=== PATIENT | male | born 1995 | race Caucasian/White ===

== ENCOUNTER 2016-11-17 17:25 | Emergency (ER) | payer OTHER ==
[~2016-11-17] VITALS: Ht 190.5 cm; Wt 141.3 kg
[2016-11-17 17:27] VITALS: BP 174/111; TEMP 36.7; Ht 190.5 cm; Wt 141.3 kg
--- NOTE | 2016-11-17 18:03 | DIAGNOSTIC IMAGING REPORT ---
RIGHT TIBIA/FIBULAR 2 VIEWS HISTORY: R calf pain Right COMPARISON: None. FINDINGS: There is no fracture or dislocation. There are suggestion of soft tissue swelling within the proximal to mid calf. No radiopaque foreign bodies. IMPRESSION: No fractures. Soft tissue swelling within the proximal to mid calf which could be due to muscular injury Electronically signed by: Brice Coulter M.D. 11/17/2016 6:01 PM Dictated Date/Time: 11/17/2016 6:00 PM
--- NOTE | 2016-11-17 18:25 | DIAGNOSTIC IMAGING REPORT ---
RIGHT LOWER EXTREMITY VENOUS DOPPLER HISTORY: Right calf pain and swelling Right COMPARISON STUDY: None. FINDINGS: There is normal compressibility, flow, and augmentation within the right lower extremity deep venous system. IMPRESSION: No DVT within the right lower extremity Electronically signed by: Brice Coulter M.D. 11/17/2016 6:23 PM Dictated Date/Time: 11/17/2016 6:22 PM
[2016-11-17 19:47] VITALS: PULSE 97; O2SAT 97
--- NOTE | 2016-11-18 00:58 | EMERGENCY ROOM VISIT NOTE ---
ED Visit Note First contact with patient: 17:32 Chief Complaint: Right calf pain. History of Present Illness: Mr. Lopez is a 21-year-old white male who ambulates into the ED accompanied by female friend complaining of right posterior calf pain. Patient reports approximately 2 weeks ago he was playing football. He is attempting to tackle another player and felt that someone kicked him in the posterior calf. Since that time he has been having moderate pain and has noted some swelling. Today he was seen at a local urgent care and referred to the ED for an ultrasound to evaluate for deep pain thrombus. Currently patient describes his discomfort as. He rates his discomfort 7/10. The pain is nonradiating. The pain worsens with palpation, ambulation and dorsiflexion. He has not identified any alleviating factors related to the pain. He reports she's been taken ibuprofen without relief of his discomfort. He denies any associated symptoms including fevers, chills, sweats, cough, shortness of breath, wheezing, chest pain, palpitations, orthopnea, dependent edema, previous clots, claudication, recent surgery/inactivity/extended travel, hip pain, knee pain, ankle pain, leg/foot weakness/numbness/tingling. Additionally he denies any previous significant injuries or surgeries to the knee or calf. Review of Systems: As noted above in history of present illness. 8 body systems were reviewed and found to be negative as noted above. Past Medical History: Hypertension, asthma. Current Medications: Patient denies. Allergies to Medications: Patient denies. Social History: Patient is currently employed; he feels safe in his home environment; he denies tobacco use and admits to alcohol use. Physical Examination: Vital Signs: Date Time Temp Pulse Resp B/P Pulse Ox O2 Delivery O2 Flow Rate FiO2 11/17/16 19:47 97 18 97 Room Air 11/17/16 17:27 36.7 96 18 174/111 97 Room Air GENERAL: 21-year-old male in mild to moderate distress due to pain, nontoxic- appearing, afebrile and hemodynamically stable. NEUROLOGICAL: Awake, alert and oriented to person, place and time. Answering questions appropriately and following commands. Good hand eye coordination. No focal motor or sensory deficits. SKIN: Warm, dry and pink. Right Lower Leg: The anterior aspect of the mid leg patient has a couple contusions but no open wounds. HEENT: Atraumatic and normocephalic. THORAX: Lungs sounds are clear to auscultation and equal bilaterally with symmetrical chest wall. No crepitus, tenderness, subcutaneous air or deformities noted. HEART: Regular rate and rhythm. No gallops, rubs or murmurs are appreciated. RIGHT LOWER EXTREMITY: No shortening or rotation. No gross bony deformities. No tenderness in the hip, thigh, knee, ankle or foot. Moderate tenderness over the mid posterior lower leg in the area of the Achilles tendon/gastrocnemius. There appears to be bulging of the gastrocnemius consistent with possible tendon rupture. There are no palpable cords or soft tissue injuries. Full range of motion in flexion and extension of the knee. Decreased plantar flexion strength and full dorsiflexion strength but with pain. Positive Galeano's test. Distal pulses and sensation intact to light touch. Capillary refill is brisk. He was able to weight all toes. ED Course: Patient is assessed as noted above. Right Lower Leg X-Rays: Were read by myself and the radiologist showing no acute fractures or dislocations. Right Lower Leg Ultrasound: Was reviewed by myself and read by the radiologist showing no DVT Patient was offered pain medications and refused. Patient's lower leg was immobilized with a posterior ankle splint and plantar flexion and he was placed on nonweightbearing crutches. Patient was educated about tonight's findings and instructed on his treatment plan; he verbalizes understanding and agreement with this plan. Clinical Impression: Ruptured of the right gastrocnemius tendon. Decision-Making: Initially my differential diagnosis I considered fibula fracture, tibial fracture, compartment syndrome, gastrocnemius tendon rupture, DVT, Latham's cyst rupture and other causes. Disposition: Patient discharged home in stable condition accompanied by his fiance; prior to departure he was reassessed and subjectively reported he was feeling the same. Plan: Comfort measures were discussed with the patient including rest, alternating ibuprofen and acetaminophen, splint and crutch use. Patient was encouraged to follow-up with [facility] for definitive care and treatment per Patient was encouraged return the ED for worsening/uncontrolled pain, uncontrolled swelling, leg weakness/numbness/tingling or any new/concerning symptoms.
== END 2016-11-17 19:48 | disposition home or self-care (01) ==
LOC: C.EDB 17:27 → C.EDD 19:48
DX: S86.811A Strain of other muscle(s) and tendon(s) at lower leg level, right leg, initial encounter (principal); W50.0XXA Accidental hit or strike by another person, initial encounter; Y93.61 Activity, american tackle football; Y92.321 Football field as the place of occurrence of the external cause; I10 Essential (primary) hypertension; J45.909 Unspecified asthma, uncomplicated

== ENCOUNTER 2017-08-03 10:37 | Emergency (ER) | payer OTHER ==
[~2017-08-03] VITALS: Ht 190.5 cm; Wt 110.0 kg
[2017-08-03 10:54] VITALS: Ht 190.5 cm; Wt 110.0 kg
[2017-08-03 11:11] VITALS: O2SAT 98
[2017-08-03 11:35] LABS: BASO % 0.5 %; BASO ABS # 0.04 K/uL (0-0.2); COMPLETE YES; EOS % 1.1 %; HEMATOCRIT 49.8 % (42-52); IG% 0.6 %; LYMPH % 18.4 %; LYMPH ABS # 1.53 K/uL (1.2-3.4); MEAN CELL VOLUME 86.6 fL (80-100); MEAN CORPUSCULAR HEMOGLOBIN 30.8 pg (25-34); MEAN CORPUSCULAR HGB CONC 35.5 g/dl (32-36); MEAN PLATELET VOLUME 9.8 fL (7.4-10.4); MONO % 10.8 %; NEUT % 68.6 %; PLATELET COUNT 249 K/uL (130-400); RED BLOOD COUNT 5.75 M/uL (4.7-6.1)
[2017-08-03 11:51] LABS: PROTHROMBIN TIME (PATIENT) 10.6 SECONDS (9.0-12.0)
[2017-08-03 11:53] LABS: ALT/SGPT 30 U/L (12-78); AST/SGOT 18 U/L (15-37); BLOOD UREA NITROGEN 13 mg/dl (7-18); CALCIUM 9.4 mg/dl (8.5-10.1); CARBON DIOXIDE 28 mmol/L (21-32); CHLORIDE 102 mmol/L (98-107); GLUCOSE 91 mg/dl (70-99); POTASSIUM 3.9 mmol/L (3.5-5.1); SODIUM 135 mmol/L (136-145)
[2017-08-03 11:59] LABS: ALKALINE PHOSPHATASE 90 U/L (45-117)
[2017-08-03 12:15] VITALS: TEMP 36.9
--- NOTE | 2017-08-03 12:20 | DIAGNOSTIC IMAGING REPORT ---
CHEST 2 VIEWS ROUTINE HISTORY: Left-sided chest pain. Short of breath. COMPARISON: Chest 03/28/2011. FINDINGS: Small linear densities within the lingula consistent with subsegmental atelectasis or scarring. The lungs are otherwise clear. No pleural effusions. No pneumothorax. The heart is normal in size. IMPRESSION: No acute process. Electronically signed by: Brice Coulter M.D. 08/03/2017 12:19 PM Dictated Date/Time: 08/03/2017 12:15 PM
[2017-08-03] MEDS ORDERED: OPTIRAY 320 IV PRN (13:00)
--- NOTE | 2017-08-03 13:36 | DIAGNOSTIC IMAGING REPORT ---
CT ANGIOGRAM OF THE CHEST CLINICAL HISTORY: Left-sided chest pain. COMPARISON STUDY: Chest x-ray dated 08/03/2017. TECHNIQUE: Following the IV administration of 94 cc of Optiray 320, CT angiogram of the chest was performed from the upper abdomen to the thoracic inlet utilizing the pulmonary embolus protocol. Images are reviewed in the axial, sagittal, and coronal planes. 3-D MIPS images are created and assessed. IV contrast was administered without complication. A dose lowering technique was utilized adhering to the principles of ALARA. CT DOSE: 695.61 mGy.cm FINDINGS: Thyroid: Imaged portions of the thyroid gland are normal in size and attenuation. Thoracic aorta: The thoracic aorta is normal in caliber and demonstrates standard 3-vessel arch anatomy. No dissection is seen. Pulmonary vasculature: The pulmonary trunk is normal in caliber. There are no filling defects identified in main, lobar, or segmental pulmonary branches. There is low-attenuation seen involving a subsegmental branch of the left lower lobe pulmonary artery a region of subpleural consolidation. Heart: The heart is normal in size and configuration, and without pericardial effusion. Lungs and pleural spaces: There is a trace left pleural effusion. Subpleural consolidation is seen at the lateral left lung base. The lungs are otherwise clear. The trachea and central airways are patent. Mediastinum: There is no mediastinal lymphadenopathy. Adri: Clear. Axillae: There is no axillary lymphadenopathy. Upper abdomen: There is a tiny hiatal hernia. Fatty infiltration is noted adjacent to the falciform ligament. Partially visualized upper abdominal viscera is otherwise within normal limits. Skeletal structures: No lytic or blastic bony lesions are seen. IMPRESSION: 1. Motion degraded examination. 2. There is no evidence of pulmonary embolus in the main, lobar, or segmental pulmonary arteries. 3. There is a small focus of subpleural consolidation at the lateral left lung base. There is motion in this region, and low-attenuation is seen along the course of a subsegmental pulmonary artery leading to the consolidation. Although the consolidative change may represent pneumonia, subsegmental pulmonary embolus with infarct is not excluded. 4. There is a trace left pleural effusion. 5. The lungs are otherwise clear. Electronically signed by: Serge Dykes M.D. 08/03/2017 1:35 PM Dictated Date/Time: 08/03/2017 1:26 PM
[2017-08-03] MEDS ORDERED: LEVO-366 PO (14:42)
[2017-08-03] MEDS ORDERED: TRAM-10 PO (14:42)
[2017-08-03] MEDS ORDERED: OXYC1TAB3 PO (14:43)
[2017-08-03] MEDS ORDERED: TRAMADOL HCL 50 MG TAB PO STA (14:44)
[2017-08-03] MEDS ORDERED: KETOROLAC TROMETHAMINE 30 MG/ML VIAL IV STA (14:44)
[2017-08-03 15:32] VITALS: BP 142/92; PULSE 100; O2SAT 96
--- NOTE | 2017-08-03 16:03 | EMERGENCY ROOM VISIT NOTE ---
History First contact with patient: 10:59 Chief Complaint: RIB PAIN Stated Complaint: LEFT SIDE RIB PAIN/SHOULDER PAIN History of Present Illness The patient is a 22 year old male who presents to the Emergency Room with complaints of that sided rib and shoulder pain. The patient reports that his pain started yesterday, and significant he worsened overnight. He reports that the pain is worsened when lying on his back or side. He reports mildly worsening pain with deep breathing as well. The patient denies any recent upper respiratory infection, but does report that over a month ago he did experience a cough for approximate 3 days. He denied any significant persistence, sinus congestion, sore throat or fever. The patient does report occasional shortness of breath, and has worsening pain with deep breathing. The patient rates his discomfort an 8 out of 10. The patient denies any prior history of pneumothorax or cardiac disease. Review of Systems HEENT: Denies dizziness, visual problems, hearing loss, tinnitus. Denies difficulty swallowing or oral lesions. PULMONARY: Denies cough, sputum production or hemoptysis. Otherwise see history of present illness. CARDIOVASCULAR: Denies palpitations, dyspnea on exertion, orthopnea or peripheral edema. Otherwise see history of present illness. GASTROINTESTINAL: Denies diarrhea, constipation, nausea, vomiting, or abdominal pain. GENITOURINARY: Denies dysuria, frequency, urgency or nocturia. NEUROLOGIC: Denies history of epilepsy, CVA, TIA or chronic headaches. MUSCULOSKELETAL: Denies history of joint tenderness/swelling. SKIN: Denies rashes or lesions. PSYCHIATRIC: Denies history of depression or mental illness. ENDOCRINE: Denies history of diabetes or thyroid disorders. Past Medical/Surgical History Medical Problems: (1) Asthma, Unspecified (2) Esophageal Reflux (3) Hypertension Nos (4) Migraine Unspecified W/O Intract Mgrn W/O Status Migrainosus Surgical Problems: (1) No history of previous surgery Family History FH: diabetes mellitus FH: heart disease FH: kidney disease Social History Smoking Status: Never Smoker Alcohol Use: occasionally Marital Status: single Occupation Status: employed Current/Historical Medications Scheduled Levofloxacin (Levaquin), 500 MG PO DAILY Scheduled PRN Oxycodone Ir (Roxicodone Ir), 1-2 TAB PO Q4H PRN for Pain Tramadol (Ultram), 1-2 TAB PO Q4H PRN for Pain Physical Exam Vital Signs Date Time Temp Pulse Resp B/P (MAP) Pulse Ox O2 Delivery O2 Flow Rate FiO2 08/03/17 15:32 100 18 142/92 96 08/03/17 13:56 86 20 148/87 96 Room Air 08/03/17 12:16 81 08/03/17 12:15 36.9 83 19 144/87 96 Room Air 08/03/17 11:53 36.9 85 17 148/87 96 Room Air 08/03/17 11:20 36.9 93 17 151/90 98 Room Air 08/03/17 11:11 98 Room Air 08/03/17 10:54 36.9 93 14 129/75 98 Room Air Physical Exam CONSTITUTIONAL: Healthy and well nourished. Alert and oriented X 3 with positive affect. The patient does appear in mild discomfort. HEENT: Normocephalic, atraumatic. Pupils equal, round and reactive. No scleral icterus or conjunctival injection/pallor. NECK: Full active range of motion without discomfort. No JVD or carotid bruits. RESPIRATORY: Clear to auscultation bilaterally with no wheezing, crackles, rhonchi or stridor. Deep breathing doesn't worsen the patient's discomfort. CARDIOVASCULAR: Regular rate and rhythm with no murmurs, rubs or gallops. GASTROINTESTINAL: Bowel sounds present in all quadrants. Soft and nontender to palpation. MUSCULOSKELETAL: Examination does not show any significant worsening pain with range of motion of the left shoulder. He has no focal tenderness to palpation of the costochondral joints or chest wall. INTEGUMENTARY: No rash or other significant dermatologic conditions noted. HEMATOLOGIC: No ecchymosis or petechiae noted. NEUROLOGIC: Cranial nerves II-XII grossly intact. No focal neurologic deficits noted. Medical Decision & Procedures ER Provider Diagnostic Interpretation: My interpretation of an ECG shows a normal sinus rhythm without ST elevation or other conduction abnormalities. My interpretation of a two-view chest x-ray does not show any obvious consolidations, pneumothorax, cardiomegaly or other acute findings. Radiologist report is as follows: CHEST 2 VIEWS ROUTINE HISTORY: Left-sided chest pain. Short of breath. COMPARISON: Chest 03/28/2011. FINDINGS: Small linear densities within the lingula consistent with subsegmental atelectasis or scarring. The lungs are otherwise clear. No pleural effusions. No pneumothorax. The heart is normal in size. IMPRESSION: No acute process. CT angiography of the chest shows the following: CT ANGIOGRAM OF THE CHEST CLINICAL HISTORY: Left-sided chest pain. COMPARISON STUDY: Chest x-ray dated 08/03/2017. TECHNIQUE: Following the IV administration of 94 cc of Optiray 320, CT angiogram of the chest was performed from the upper abdomen to the thoracic inlet utilizing the pulmonary embolus protocol. Images are reviewed in the axial, sagittal, and coronal planes. 3-D MIPS images are created and assessed. IV contrast was administered without complication. A dose lowering technique was utilized adhering to the principles of ALARA. CT DOSE: 695.61 mGy.cm FINDINGS: Thyroid: Imaged portions of the thyroid gland are normal in size and attenuation. Thoracic aorta: The thoracic aorta is normal in caliber and demonstrates standard 3-vessel arch anatomy. No dissection is seen. Pulmonary vasculature: The pulmonary trunk is normal in caliber. There are no filling defects identified in main, lobar, or segmental pulmonary branches. There is low-attenuation seen involving a subsegmental branch of the left lower lobe pulmonary artery a region of subpleural consolidation. Heart: The heart is normal in size and configuration, and without pericardial effusion. Lungs and pleural spaces: There is a trace left pleural effusion. Subpleural consolidation is seen at the lateral left lung base. The lungs are otherwise clear. The trachea and central airways are patent. Mediastinum: There is no mediastinal lymphadenopathy. Adri: Clear. Axillae: There is no axillary lymphadenopathy. Upper abdomen: There is a tiny hiatal hernia. Fatty infiltration is noted adjacent to the falciform ligament. Partially visualized upper abdominal viscera is otherwise within normal limits. Skeletal structures: No lytic or blastic bony lesions are seen. IMPRESSION: 1. Motion degraded examination. 2. There is no evidence of pulmonary embolus in the main, lobar, or segmental pulmonary arteries. 3. There is a small focus of subpleural consolidation at the lateral left lung base. There is motion in this region, and low-attenuation is seen along the course of a subsegmental pulmonary artery leading to the consolidation. Although the consolidative change may represent pneumonia, subsegmental pulmonary embolus with infarct is not excluded. 4. There is a trace left pleural effusion. 5. The lungs are otherwise clear. Laboratory Results 08/03/17 11:15 Red Blood Count 5.75, Mean Corpuscular Volume 86.6, Mean Corpuscular Hemoglobin 30.8, Mean Corpuscular Hemoglobin Concent 35.5, Mean Platelet Volume 9.8, Neutrophils (%) (Auto) 68.6, Lymphocytes (%) (Auto) 18.4, Monocytes (%) (Auto) 10.8, Eosinophils (%) (Auto) 1.1, Basophils (%) (Auto) 0.5, Neutrophils # (Auto ) 5.69, Lymphocytes # (Auto) 1.53, Monocytes # (Auto) 0.90, Eosinophils # (Auto ) 0.09, Basophils # (Auto) 0.04 08/03/17 11:15 Test 08/03/17 11:15 White Blood Count 8.30 K/uL (4.8-10.8) Red Blood Count 5.75 M/uL (4.7-6.1) Hemoglobin 17.7 g/dL (14.0-18.0) Hematocrit 49.8 % (42-52) Mean Corpuscular Volume 86.6 fL (80-100) Mean Corpuscular Hemoglobin 30.8 pg (25-34) Mean Corpuscular Hemoglobin Concent 35.5 g/dl (32-36) Platelet Count 249 K/uL (130-400) Mean Platelet Volume 9.8 fL (7.4-10.4) Neutrophils (%) (Auto) 68.6 % Lymphocytes (%) (Auto) 18.4 % Monocytes (%) (Auto) 10.8 % Eosinophils (%) (Auto) 1.1 % Basophils (%) (Auto) 0.5 % Neutrophils # (Auto) 5.69 K/uL (1.4-6.5) Lymphocytes # (Auto) 1.53 K/uL (1.2-3.4) Monocytes # (Auto) 0.90 K/uL (0.11-0.59) Eosinophils # (Auto) 0.09 K/uL (0-0.5) Basophils # (Auto) 0.04 K/uL (0-0.2) RDW Standard Deviation 38.4 fL (36.4-46.3) RDW Coefficient of Variation 12.2 % (11.5-14.5) Immature Granulocyte % (Auto) 0.6 % Immature Granulocyte # (Auto) 0.05 K/uL (0.00-0.02) Prothrombin Time 10.6 SECONDS (9.0-12.0) Prothromb Time International Ratio 1.0 (0.9-1.1) Activated Partial Thromboplast Time 27.0 SECONDS (21.0-31.0) Partial Thromboplastin Ratio 1.0 D-Dimer 360 ug/L FEU (0-500) Anion Gap 5.0 mmol/L (3-11) Est Creatinine Clear Calc Drug Dose 127.1 ml/min Estimated GFR () 97.5 Estimated GFR (Non- 84.1 BUN/Creatinine Ratio 11.0 (10-20) Calcium Level 9.4 mg/dl (8.5-10.1) Total Bilirubin 1.2 mg/dl (0.2-1) Direct Bilirubin 0.2 mg/dl (0-0.2) Aspartate Amino Transf (AST/SGOT) 18 U/L (15-37) Alanine Aminotransferase (ALT/SGPT) 30 U/L (12-78) Alkaline Phosphatase 90 U/L (45-117) Total Creatine Kinase 146 U/L (39-308) Creatine Kinase MB 1.4 ng/ml (0.5-3.6) Creatine Kinase MB Ratio 1.0 (0-3.0) Troponin I < 0.015 ng/ml (0-0.045) Total Protein 8.4 gm/dl (6.4-8.2) Albumin 4.4 gm/dl (3.4-5.0) Lipase 106 U/L (73-393) The above labs were reviewed. Troponin and d-dimer are normal. Remaining labs were also reviewed and normal. CBC, partial renal profile and coagulation studies were also normal. Medications Administered Medications (Trade) Dose Ordered Sig/Sadaf Route Start Time Stop Time Status Last Admin Dose Admin Ketorolac Tromethamine (Toradol Inj) 30 mg NOW STAT IV 08/03/17 14:44 08/03/17 14:45 DC 08/03/17 15:03 30 MG Tramadol HCl (Ultram Tab) 50 mg NOW STAT PO 08/03/17 14:44 08/03/17 14:45 DC 08/03/17 15:02 50 MG ED Course Patient history and physical exam were performed. Nurse's notes were reviewed. Vital signs were reviewed and were normal. The patient initially refused any analgesics. IV access was established, and labs were drawn. ECG and portable chest x-ray were normal. Labs were also reviewed, showing a normal troponin and d-dimer. Remaining labs were also grossly normal. Given the patient's description of symptoms, the case was further discussed with Dr. Bass, ED attending physician who suggested performing a CT angiography of the chest to rule out PE, pneumonia or aortic dissection. The patient was in agreement. CT angiography shows a small focus of Cipro consolidation at the lateral left lung base. Although motion artifact is noted , the radiologist suggested consolidative changes that may represent pneumonia or a subsegmental pulmonary embolus with infarct. Kali Garza suggested discussing the case further with Dr. Lanier, cardiothoracic surgeon who also reviewed CT images and suggested antibiotic/NSAIDs treatment and follow-up with pulmonology. His consultation was appreciated. The patient was provided contact information for Dr. Diaz's office. The patient was provided a prescription for Levaquin 500 mg daily 7 days, and encouraged to take ibuprofen 800 mg every 8 hours. He may also take Tylenol in alternating fashion for additional relief. The patient reports worsening discomfort while in the emergency department. He was administered Toradol 30 mg IVP, and Ultram 50 mg. In addition to prescription Levaquin, the patient also was provided prescriptions for Ultram as needed for daytime pain relief, and OxyIR as needed for worse breakthrough pain. The patient was warned about sedation and constipation off taking OxyIR, and instructed to avoid alcohol. The patient was instructed to return to the emergency department for any progressively worsening symptoms. The patient was happy with plan of care, voiced understanding of all discharge instructions, and rated his discomfort a 5 out of 10 at the time of discharge. Medical Decision Workup today is most suggestive of an atypical pneumonia. It is noted that the patient is afebrile and has no leukocytosis. The patient did not have an elevated d-dimer level, however I was concerned for the possibility of pulmonary embolus given the patient's a minimal upper respiratory symptoms except for a remote history of a 3 day cough over one month ago. Pleuritic etiology is certainly possible. I do not suspect pericarditis, myocardial infarction or cardiomyopathy. [place] Drug Monitoring Program Search Results: patient reviewed within database, no issues identified Medication Reconcilliation Current Medication List: was personally reviewed by me Blood Pressure Screening Patient's blood pressure: Normal blood pressure Impression Primary Impression: Left lung consolidation Departure Information Prescriptions Oxycodone Ir (Roxicodone Ir) 5 Mg Tab 1-2 TAB PO Q4H Y for Pain, #15 TAB For Initial Treatment Prov: Simeon Ferrara PA 08/03/17 Tramadol (Ultram) 50 Mg Tab 1-2 TAB PO Q4H Y for Pain, #20 TAB For Initial Treatment Prov: Simeon Ferrara PA 08/03/17 Levofloxacin (Levaquin) 500 Mg Tab 500 MG PO DAILY for 7 Days, #7 TAB Prov: Simeon Ferrara PA 08/03/17 Referrals No Doctor, Assigned (PCP) Patient Instructions [facility]
== END 2017-08-03 15:32 | disposition home or self-care (01) ==
LOC: C.EDB 10:39 → C.EDD 15:32
DX: J18.1 Lobar pneumonia, unspecified organism (principal); J45.909 Unspecified asthma, uncomplicated; I10 Essential (primary) hypertension; K21.9 Gastro-esophageal reflux disease without esophagitis; G43.909 Migraine, unspecified, not intractable, without status migrainosus; Z83.3 Family history of diabetes mellitus

== ENCOUNTER → 2017-08-05 | Outpatient (CLI) | payer OTHER ==
[~2017-08-05] MED LIST: LEVO-366 PO; OXYC1TAB3 PO; TRAM-10 PO
--- NOTE | 2017-08-05 13:27 | DIAGNOSTIC IMAGING REPORT ---
RIGHT LOWER EXTREMITY VENOUS DOPPLER CLINICAL HISTORY: Right lower extremity swelling. COMPARISON STUDY: Right lower extremity venous Doppler November 17 2016. TECHNIQUE: Sonography of the deep venous system of the right lower extremity was performed. Compression and augmentation were evaluated. FINDINGS: The right common femoral, superficial femoral and popliteal veins were compressible. Augmentation was normal. Flow was shown within the deep calf vessels. IMPRESSION: No evidence of deep venous thrombus within the right lower extremity. Electronically signed by: Jono Adan M.D. 08/05/2017 1:26 PM Dictated Date/Time: 08/05/2017 1:25 PM
== END | disposition home or self-care (01) ==
LOC: C.ULTR 12:40
PROVIDERS: ATTEND Internal Medicine Pulmonary Disease
DX: M79.89 Other specified soft tissue disorders (principal)

== ENCOUNTER → 2017-09-07 | Outpatient (CLI) | payer OTHER ==
[~2017-09-07] MED LIST changes: -LEVO-366 PO
--- NOTE | 2017-09-08 05:50 | PAP/PSG TECHNICIAN REPORT ---
[facility] Planner Internship Polysomnogram Report Study name: None Report date: 09/08/2017 Study date: 09/07/2017 Referring Physician: Angelo Diaz MD Name: FERNANDO OWUSU Interpreting Physician: Rodrick Barrett D.O. Date of : 1995 Planner Internship: SHANTE Amaro. Sex: Male Age: 22 StudyType: PSG Weight: 298 lbs Height: 22 years, Height 6' 3" Neck Circum:18.25inches BMI: 37.24 Medications: Oxycodone HCl 5mg, Tramadol HCl 50mg Patient History Study started on room air with no ETCO2 monitoring in room #6. 22 yr old male here tonight for a diagnostic psg. He complains of loud snoring, witnessed apnea and EDS. He had a sleep study done in 2011 that suggested upper airway resistance syndrome. He was not placed on CPAP. His ESS=16/24. Neck circ=18.25inches. Parameters Monitored NPSG: E1-M2, E2-M1, Fp1-M2, Fp2-M1, F3-M2, F4-M2, F4-M1, C3-M2, C4-M2, C4-M1, O1-M2, O2-M2, O2-M1, T3-M2, T4-M1, P3-M2, P4-M1, CHIN1, CHIN2, HR, EKG, Legs, PFLOW, SNOR, FLOW, CFLOW, Tidal Volume, THOR, ABDO, SpO2, PLTH, CPRESS, ETCO2 Wave, ETCO2, pH Sleep Architecture Sleep Stages Time at Lights Off 8:37:54 PM STAGES Time (min.) TST (%) Time at Lights On 5:29:24 AM Wake 43.5 -- Total Recording Time (TRT) 531.50 min. N1 17.0 3 Total Sleep Period (TSP) 504.0 min. N2 278.0 57 Total Sleep Time (TST) 488.0min. N3 53.5 11 Awake Time 43.5 min. REM 139.5 29 Wake after Sleep Onset 16.0 min. Sleep Efficiency (SE) 92 % Sleep Onset Latency (MICHAEL) 27.5 min. Number of Stage 1 Shifts None Awakenings 16 Stage Changes 87 Number of REM periods 12 REM 139.5 29 REM Latency 64.0 min. NREM 348.5 71 Body Position Analysis Supine Right Left Side Prone Vertical Total Sleep Time (min.) 181.0 219.8 81.0 300.83 40.7 0.0 Total Sleep Time (%) 30% 45% 17% 62 8% N/A% Total Sleep Time REM (min.) 33.0 56.5 43.0 None 7.0 0.0 Total Sleep Time NREM (min.) 115.1 163.3 38.0 None 32.0 0.0 Intermittent Wake (min.) 32.8 6.9 2.1 None 1.6 0.0 Total Sleep Period (%) 30% None None None None None Arousals Myoclonus (PLM) * Events Count Index Events Count Index Spontaneous 23 3 Events Awake (PLMW) 35 48.3 Respiratory 8 1.1 Events Asleep w/ Arousal (PLMA) 2 0.2 PLM 2 0 Events Asleep w/o Arousal (PLMS) 32 3.9 Snoring 15 2 Total Asleep 34 4.2 Total 45 6 Total 69 8 Respiratory Analysis * CA OA MA CH H RERA Total Count 0 3 0 0 71 5 74 Index 0.0 0.4 0.0 0 8.7 1 9.7 Mean Duration 0.0 13.4 0.0 0.00 19.8 15.9 19.3 Longest Duration 0.0 16.5 0.0 0.00 0.0 43.4 59.0 Respiratory Event Summary Total Supine ~Supine Right Left Prone REM NREM Apneas Count 3 0 3 0 1 2 0 3 Index 0.4 0 1 0.0 0.7 3 0 1 Hypopneas (4% Desat) Count 71 58 13 4 1 8 13 58 Index 8.7 23.5 2 1.1 0.7 12.3 5.6 10.0 Apneas & All Hypopneas Count 74 58 16 4 2 10 13 61 Index 9.1 23 3 1 1 15 5.6 10.5 Respiratory Events (Front Desk Specialist+All Hyp+RERA) Count 74 60 19 5 3 11 13 61 Index 9.7 24 3 1.4 2.2 16.9 6.0 11.2 Respiratory Related Arousal Count 8 60 3 0 1 2 2 7 Index 1.1 2 1 0 1 3 1 1 Snoring Analysis Supine Right Left Prone REM NREM Total Snore duration 101.5 min Snores count 1,060 2,063 718 285 1,090 3,036 4,126 Snore mean duration 1.5 Sec Snores index 429 563 532 438 468.8 522.7 507.3 TST with snoring (%) 20.8% Desaturation Event Summary: Minimum %SpO2 Event Count Mean/Min/Max Duration(sec.) Desaturation Index % Time In Bed > 90 93 22.6 / 6.0 / 59.3 11.1 95.3 86 - 90 4 19.4 / 17.0 / 21.5 9.8 4.7 81 - 85 0 N/A 0.0 0.0 76 - 80 0 N/A 0.0 0.0 71 - 75 0 N/A 0.0 0.0 66 - 70 0 N/A 0.0 0.0 61 - 65 0 N/A 0.0 0.0 56 - 60 0 N/A 0.0 0.0 51 - 55 0 N/A 0.0 0.0 < 50 0 N/A 0.0 0.0 Total REM NREM Awake <50% 0.0 min. 0.0 min. 0.0 min. 0.0 min. 51 - 60% 0.0 min. 0.0 min. 0.0 min. 0.0 min. 61 - 70% 0.0 min. 0.0 min. 0.0 min. 0.0 min. 71 - 80% 0.0 min. 0.0 min. 0.0 min. 0.0 min. 81 - 90% 24.5 min. 1.2 min. 23.2 min. 0.1 min. 91 - 100% 501.9 min. 137.3 min. 323.2 min. 41.4 min. Average 93 94 93 93 Minimum SpO2 86 86 86 87 Desaturation Event Index 10.5 9.5 11.5 9.7 # Desat. Events below 89% 14 2 11 1 Time(%) with Saturation below 89% 0.4 0.0 0.4 0.0 Time(min.) with Saturation below 89% 2.3 0.2 2.1 0.0 Time (mins) REM (mins) NREM (mins) % of TST SpO2 Below 90% 48 6 N42 1.3 SpO2 Below 88% 4 0 0 0 Heart Rate Analysis Min (bpm) Max (bpm) Average (bpm) Awake 52 145 76 NREM 42 100 66 REM 45 127 71 Overall 42 127 68 Supplemental O2 Values Minimum O2 level: None Value Start Time End Time Planner Internship Comments Mr. Owusu slept in the right, left, supine and prone positions. Cardiac arrhythmia noted, please see print outs .No PLM's noted. No bruxism noted. Snoring was noted and scored as a 4 on a scale of 1 through 5. (0=no snoring, 5=snoring loud enough to be heard through a closed door or down the [address]) He did not use the restroom during the night. He stated that he slept about the same as usual. The final report will be interpreted and signed by a sleep physician. The completed physician report will then be placed in the patient medical record. Therapy (cm H2O) 0 TIB (min.) 531.5 TST (min.) 488.0 Sleep Onset (min.) 27.5 REM Onset From Sleep (min.) 64.0 Sleep Efficiency % 92 Wakefulness (%) 8 Wakefulness (min.) 43.5 NREM 1 (%) 3 NREM 1 (min.) 17.0 NREM 2 (%) 57 NREM 2 (min.) 278.0 NREM 3 (%) 11 NREM 3 (min.) 53.5 REM (%) 29 REM (min.) 139.5 # Arousals 45 Arousal Index 6 # Snore 4,126 Snore Index 507.3 AHI 9.1 AHI Supine 23 AHI Non-Supine 3 NREM AHI 10.5 REM AHI 5.6 RDI 9.7 # Obstructive Apnea 3 # Central Apnea 0 # Mixed Apnea 0 # Hypopneas 71 RERAs 5 Total Respiratory Events 79 Time Below SpO2 89% (min.) 2.3 Mean NREM SpO2 (%) 93 Mean REM SpO2 (%) 94 Mean Sleep SpO2 (%) 93 Min NREM SpO2 (%) 86 Min REM SpO2 (%) 86 Position Supine (min.) 181.0 Position Non-supine (min.) 339.9 LM Index Sleep 4.2 LM Index NREM 2.1 LM Index REM 9.5 Mean Heart Rate (bpm) 68 Min Heart Rate (bpm) 42
--- NOTE | 2017-09-11 12:17 | Sleep Study ---
Sleep Study Report Date of Service: 09/07/2017 Sleep Study Report CLINICAL DATA: The patient is a 22-year-old male with a history of snoring, observed apneas, and excessive daytime somnolence. He has an [place] Sleepiness Scale score of 16 out of a possible 24. His BMI is elevated at 37.24. This was an in-lab overnight polysomnography. SLEEP ARCHITECTURE: The patient had a total sleep period of 504 minutes. The total sleep time was 488 minutes. The sleep efficiency was normal at 92 percent. The sleep latency was prolonged to 27.5 minutes. Wake after sleep onset was normal at 16 minutes. The REM latency was 64 minutes. Sleep consisted of stage N1 3 percent , stage N2 57 percent, stage N3 11 percent, stage REM 29 percent. AROUSAL DATA: The patient had a total of 45 arousals including 23 spontaneous arousals, 8 respiratory arousals, 2 PLM arousals, and 15 snoring arousals. The arousal index was 6. PLM DATA: The patient had a total of 34 periodic limb movements of sleep for a PLM index of 4.2. There were 2 arousals associated with limb movements for a PLM arousal index of 0.2. EKG: The underlying cardiac rhythm was sinus arrhythmia. The minimum heart rate was 42 per minute. The average heart rate was 68 beats per minute. RESPIRATORY DATA: Patient had a total of 74 respiratory events including 3 obstructive apneas and 71 hypopneas. Hypopneas were scored according to the 4 percent desaturation rule. The longest apnea was 16.5 seconds. The mean duration of the hypopneas was 19.8 seconds. There were 5 RERAs. The apnea-hypopnea index was 9.1 events per hour. This would represent mild obstructive sleep apnea. OXIMETRY DATA: The average saturation for the night was 93 percent. The minimum saturation was 86 percent. This was very transient. There was a total of only 2.3 minutes with saturations less than 89 percent. COLLECTIONS AND ARCHIVES DIRECTOR COMMENTS: The patient slept on the right, left, supine, and prone positions. Cardiac arrhythmia noted. No bruxism noted. Snoring was noted and scored as a 4 on a scale of 1 through 5. He did not use the restroom during the night. IMPRESSIONS: 1. Mild obstructive sleep apnea COMMENTS: The patient had a normal sleep efficiency. Sleep architecture was normal. He did have mild sleep apnea. The majority of the events occurred in the 2nd half of the night. There was a greater frequency of events when the patient was supine with a supine apnea-hypopnea index of 23. The patient has significant symptoms as noted above. In light of this would advise treatment with nasal CPAP. This could be done either by referral for a CPAP titration or treatment with auto CPAP. RECOMMENDATIONS: 1. It is advised that the patient be treated with nasal CPAP. One option would be referral to the Sleep Lab for a CPAP titration done in lab. Alternatively he could be treated with auto CPAP. 2. Weight loss is advised in light of the elevation of body mass index at 37.24. 3. It is suggested that the patient avoid sleeping in the supine position. Patient did have a significantly higher apnea-hypopnea index when he was supine. Copies To 1: Rodrick Barrett DO; Angelo Diaz M.D.
== END | disposition home or self-care (01) ==
LOC: C.NEUR 13:58
PROVIDERS: ATTEND Internal Medicine Pulmonary Disease
DX: J45.909 Unspecified asthma, uncomplicated (principal); G47.33 Obstructive sleep apnea (adult) (pediatric)